=== PATIENT | male | born 1960 | race Caucasian/White ===

== ENCOUNTER 2024-05-27 10:54 | Inpatient (IN) | payer OTHER ==
[2024-05-27 11:14] VITALS: BMI 30.8
[2024-05-27] MEDS ORDERED: ONDANSETRON *ODT* 4 MG TABLET SL PRN (12:13)
[2024-05-27] MEDS ORDERED: BENZOCAINE/MENTHOL (CHLORASEPTIC ) LOZENGE MM PRN (12:13)
[2024-05-27] MEDS ORDERED: BISMUTH SUBSALICYLATE 524 MG/30 ML PO PRN (12:13)
[2024-05-27] MEDS ORDERED: hydrOXYzine PAMOATE 25 MG CAPSULE (FP) PO PRN (12:13)
[2024-05-27] MEDS ORDERED: BENZONATATE 200 MG CAPSULE PO PRN (12:13)
[2024-05-27] MEDS ORDERED: MAG HYDROX/AL HYDROX/SIMETH 30 ML UNIT-DOSE CUP PO PRN (12:13)
[2024-05-27] MEDS ORDERED: POLYETHYLENE GLYCOL (HEALTHYLAX) 3350 17 GM PACKET PO PRN (12:13)
[2024-05-27] MEDS ORDERED: IBUPROFEN 600 MG TABLET (FP) PO PRN (12:13)
[2024-05-27] MEDS ORDERED: IBUPROFEN 400 MG TABLET (FP) PO PRN (12:13)
[2024-05-27] MEDS ORDERED: ACETAMINOPHEN 325 MG TABLET (FP) PO PRN (12:13)
[2024-05-27] MEDS ORDERED: LOPERAMIDE HCL 2 MG CAPSULE PO PRN (12:13)
[2024-05-27] MEDS ORDERED: DICYCLOMINE HCL 10 MG CAPSULE PO PRN (12:13)
[2024-05-27] MEDS ORDERED: NALOXONE (NARCAN) HCL 4 MG/0.1 ML SPRAY NS PRN (12:13)
[2024-05-27] MEDS ORDERED: guaiFENesin 600 MG TABLET.ER (FP) PO PRN (12:13)
[2024-05-27] MEDS ORDERED: MAGNESIUM HYDROX 2400MG/30ML ORAL SUSPENSION 30 ML CUP PO PRN (12:13)
[2024-05-27] MEDS ORDERED: methaDONE HCL 10 MG TABLET (FOR DETOX USE ONLY) ONE (12:56)
[2024-05-27] MEDS: methaDONE HCL 10 MG TABLET PO ONE (12:58)
[2024-05-27] MEDS: cloNIDine HCL 0.1 MG TABLET PO SCH (13:27)
[2024-05-27] MEDS: THIAMINE 100 MG TABLET PO SCH (21:28)
[2024-05-27] MEDS ORDERED: MIRTAZAPINE 15 MG TABLET (FP) PO SCH (22:00)
[2024-05-27] MEDS: MELATONIN 5 MG TABLETS PO SCH (22:19)
[2024-05-28] MEDS: PRENATAL VITAMINS W/ FOLIC ACID TABLET (FP) PO SCH (09:28)
[2024-05-28 11:30] LABS: HEMATOCRIT 39.2 % (40.1-51.0); HEMOGLOBIN 12.5 g/dL (13.7-17.5); MCHC 31.9 g/dl (32.3-36.5); MEAN CELL VOLUME 89.1 fl (79.0-92.2); MEAN PLT VOLUME 9.9 fl (9.4-12.4); PLATELET COUNT 364 x10^3/uL (163-337); RDW 12.9 % (12.2-16.4)
[2024-05-28 11:32] LABS: POTASSIUM 4.5 mmol/L (3.5-5.1)
[2024-05-28 11:43] LABS: ALBUMIN 3.4 g/dl (3.4-5.0); BLOOD UREA NITROGEN 14.9 mg/dL (7-18)
[2024-05-28 11:48] LABS: BILIRUBIN,TOTAL 0.3 mg/dL (0.2-1); TOT PROT 6.8 g/dl (6.4-8.2)
[2024-05-28] MEDS: METHOCARBAMOL 500 MG TABLET PO PRN (22:29)
[2024-05-28] MEDS: SUVOREXANT 10 MG TABLET PO PRN (22:30)
[2024-05-29] MEDS: methaDONE 40 MG, methaDONE 10 MG PO ONE (10:33)
[2024-05-29] MEDS: cloNIDine HCL 0.1 MG TABLET PO PRN (22:44)
[2024-05-30] MEDS: SUVOREXANT 10 MG TABLET PO PRN (22:19)
[2024-05-31] MEDS: methaDONE 40 MG, methaDONE 20 MG PO ONE (09:58)
[2024-05-31] MEDS: cloNIDine HCL 0.1 MG TABLET PO PRN (17:36)
[2024-06-01 18:29] VITALS: BP 138/78; PULSE 70; RESP 17; TEMP 97.3
== END 2024-06-01 18:53 | disposition other institution (70) | DRG 773 ==
LOC: YASAS 10:54 → Y6N 12:46
PROVIDERS: ADMIT Allergy & Immunology; ATTEND Allergy & Immunology
PROC: HZ2ZZZZ Detoxification Services for Substance Abuse Treatment (ICD-10-PCS; principal; 2024-05-27)
DX: F11.23 Opioid dependence with withdrawal (principal); F14.20 Cocaine dependence, uncomplicated; F13.10 Sedative, hypnotic or anxiolytic abuse, uncomplicated; F19.282 Other psychoactive substance dependence with psychoactive substance-induced sleep disorder; I10 Essential (primary) hypertension; Z87.891 Personal history of nicotine dependence
CPT/HCPCS: 36415; 80053; 80305; 80307; 85027; 86780; 93005; 93010

== ENCOUNTER 2024-06-01 18:58 | Inpatient (IN) | payer OTHER ==
[~2024-06-01 18:58] MED LIST: BENZOCAINE/MENTHOL (CHLORASEPTIC ) LOZENGE MM PRN; BENZONATATE 200 MG CAPSULE PO PRN; IBUPROFEN 400 MG TABLET (FP) PO PRN; IBUPROFEN 600 MG TABLET (FP) PO PRN; LOPERAMIDE HCL 2 MG CAPSULE PO PRN; MAG HYDROX/AL HYDROX/SIMETH 30 ML UNIT-DOSE CUP PO PRN; MAGNESIUM HYDROX 2400MG/30ML ORAL SUSPENSION 30 ML CUP PO PRN; NALOXONE (NARCAN) HCL 4 MG/0.1 ML SPRAY NS PRN; NICOTINE POLACRILEX 2 MG GUM BUC PRN; NICOTINE POLACRILEX 2 MG LOZENGE BC PRN; POLYETHYLENE GLYCOL (HEALTHYLAX) 3350 17 GM PACKET PO PRN; guaiFENesin 600 MG TABLET.ER (FP) PO PRN
[2024-06-01] MEDS: THIAMINE 100 MG TABLET PO SCH (21:17)
[2024-06-01] MEDS: MELATONIN 5 MG TABLETS PO SCH (21:17)
[2024-06-01] MEDS: hydrOXYzine PAMOATE 25 MG CAPSULE (FP) PO PRN (21:18)
[2024-06-02] MEDS ORDERED: methaDONE HCL 10 MG TABLET PO SCH (06:00)
[2024-06-02] MEDS: PRENATAL VITAMINS W/ FOLIC ACID TABLET (FP) PO SCH (10:07)
[2024-06-02] MEDS: METHOCARBAMOL 500 MG TABLET PO PRN (18:38)
[2024-06-02] MEDS: SUVOREXANT 10 MG TABLET PO PRN (21:14)
[2024-06-03] MEDS: BACLOFEN 10 MG TABLET (FP) PO SCH (10:42)
[2024-06-04] MEDS ORDERED: methaDONE HCL 40 MG DISPERSABLE TABLET PO SCH (06:00)
[2024-06-04] MEDS: methaDONE 40 MG, methaDONE 30 MG PO SCH (06:34)
[2024-06-04] MEDS: amLODIPine BESYLATE 5 MG TABLET (FP) PO SCH (10:28)
[2024-06-05] MEDS ORDERED: methaDONE HCL 40 MG DISPERSABLE TABLET PO SCH (06:00)
[2024-06-05] MEDS ORDERED: methaDONE HCL 10 MG TABLET PO SCH (16:10)
[2024-06-06] MEDS: amLODIPine BESYLATE 2.5 MG TABLET (FP) PO SCH (10:02)
[2024-06-08] MEDS ORDERED: DICYCLOMINE HCL 10 MG CAPSULE PO PRN (13:52)
[2024-06-08] MEDS ORDERED: guaiFENesin 600 MG TABLET.ER (FP) PO PRN (13:52)
[2024-06-08] MEDS ORDERED: ONDANSETRON *ODT* 4 MG TABLET SL PRN (13:52)
[2024-06-08] MEDS ORDERED: BENZONATATE 200 MG CAPSULE PO PRN (13:52)
[2024-06-10] MEDS: BISMUTH SUBSALICYLATE 524 MG/30 ML PO PRN (11:01)
[2024-06-11] MEDS: amLODIPine BESYLATE 10 MG TABLET (FP) PO SCH (10:16)
[2024-06-13] MEDS ORDERED: guaiFENesin 200 MG/10 ML 10 ML UNIT-DOSE CUPS PO PRN (12:14)
[2024-06-14] MEDS: ACETAMINOPHEN 325 MG TABLET (FP) PO PRN (06:46)
[2024-06-14] MEDS: cloNIDine HCL 0.1 MG TABLET PO PRN (06:53)
[2024-06-19] MEDS: SUVOREXANT 10 MG TABLET PO PRN (23:08)
[2024-06-23] MEDS ORDERED: methaDONE HCL 10 MG TABLET PO ONE (18:39)
[2024-06-28 06:09] VITALS: RESP 18
[2024-06-29 05:39] VITALS: BP 137/79; PULSE 71; TEMP 97.5
== END 2024-06-29 07:50 | disposition home or self-care (01) | DRG 772 ==
LOC: YASAS 18:58 → Y3W 19:00 → Y3NR 06-15 12:32 → Y3W 06-25 10:15
PROVIDERS: ADMIT Psychiatry & Neurology Pain Medicine; ATTEND Allergy & Immunology
PROC: HZ42ZZZ Group Counseling for Substance Abuse Treatment, Cognitive-Behavioral (ICD-10-PCS; principal; 2024-06-01)
DX: F11.20 Opioid dependence, uncomplicated (principal); F10.20 Alcohol dependence, uncomplicated; F14.20 Cocaine dependence, uncomplicated; F19.282 Other psychoactive substance dependence with psychoactive substance-induced sleep disorder; U07.1 COVID-19; I10 Essential (primary) hypertension; Z87.891 Personal history of nicotine dependence
CPT/HCPCS: 0241U-QW; 83036; 87811; J0475

== ENCOUNTER 2024-09-24 16:34 | Emergency (ER) | payer OTHER ==
[2024-09-24 16:51] VITALS: RESP 18; BMI 34.4
[2024-09-24 16:58] VITALS: BP 147/77; PULSE 72; TEMP 97.7
== END 2024-09-24 18:57 | disposition home or self-care (01) ==
LOC: JER 16:34
DX: M25.512 Pain in left shoulder (principal); M25.552 Pain in left hip; Y04.8XXA Assault by other bodily force, initial encounter; Y92.000 Kitchen of unspecified non-institutional (private) residence as the place of occurrence of the external cause
CPT/HCPCS: 70450-TC; 73030-TC-LT-FY; 73502-TC-LT-FY; 99284-25